=== PATIENT | female | born 1945 | race Caucasian/White ===

== ENCOUNTER → 2017-12-31 | Outpatient (CLI) | payer MEDICARE, BC ==
[~2017-12-31] MED LIST: ASPIRIN 32325 MG/TA1 PO; CHANTIX 1MG1 MG PO; DEXILANT60 MG PO; DULERA1 ARO IH; LEVOXYL0.125 MG PO; LIPITOR 40MG TA40 MG PO; MUCINEX 60600 MG/TA1 PO; MULTIPLE VITAMI1 CAP PO; MYSOLINE 5050 MG/TAB PO
== END ==
LOC: COL.RAD 08:09
DX: Z13.6 Encounter for screening for cardiovascular disorders (principal); I70.0 Atherosclerosis of aorta; E78.5 Hyperlipidemia, unspecified; I77.9 Disorder of arteries and arterioles, unspecified

== ENCOUNTER → 2018-01-04 | Outpatient (CLI) | payer MEDICARE, BC | LOC: COL.VAS 10:45 | DX: I08.0 Rheumatic disorders of both mitral and aortic valves (principal) ==

== ENCOUNTER → 2018-03-19 | Outpatient (CLI) | payer MEDICARE, BC ==
[2018-03-19 13:52] LABS: ALBUMIN 3.7 gm/dL (3.5-5.0); BILIRUBIN,TOTAL 0.5 mg/dL (0.0-1.0); CALCIUM 9.4 mg/dL (8.4-10.2); CREATININE, serum 0.55 mg/dL (0.52-1.25); POTASSIUM 4.6 mmol/L (3.4-5.0); TOTAL PROTEIN 6.9 gm/dL (6.4-8.2)
== END ==
LOC: COL.LAB 12:18
PROVIDERS: Internal Medicine Clinical Cardiac Electrophysiology
DX: I95.1 Orthostatic hypotension (principal); E78.2 Mixed hyperlipidemia

== ENCOUNTER → 2019-02-11 | Outpatient (CLI) | payer MEDICARE, BC | LOC: MC.RAD 11:45 | DX: Z12.31 Encounter for screening mammogram for malignant neoplasm of breast (principal) ==

== ENCOUNTER → 2019-10-01 | Outpatient (CLI) | payer MEDICARE, BC | LOC: COL.VAS 12:02 | DX: I65.22 Occlusion and stenosis of left carotid artery (principal); I95.1 Orthostatic hypotension; Z98.890 Other specified postprocedural states ==

== ENCOUNTER 2020-04-29 11:00 | Outpatient (RCR) | payer MEDICARE, BC | END 2020-07-07 | disposition home or self-care (01) | LOC: WSST | DX: R49.0 Dysphonia (principal); Z98.890 Other specified postprocedural states ==

== ENCOUNTER → 2020-06-14 | Outpatient (CLI) | payer MEDICARE, BC | LOC: ZCOL.LAB 15:52 | DX: Z20.828 Contact with and (suspected) exposure to other viral communicable diseases (principal) ==

== ENCOUNTER → 2021-06-06 | Outpatient (CLI) | payer MEDICARE, BC | LOC: MC.RAD 13:15 | DX: Z12.31 Encounter for screening mammogram for malignant neoplasm of breast (principal) ==

== ENCOUNTER 2021-12-13 11:07 | Outpatient (RCR) | payer MEDICARE, BC | END 2021-12-19 | disposition home or self-care (01) | LOC: WSST | DX: R49.0 Dysphonia (principal) ==

== ENCOUNTER 2022-01-17 13:45 | Outpatient (RCR) | payer MEDICARE, BC | END 2022-01-19 | disposition home or self-care (01) | LOC: WSST | DX: R49.0 Dysphonia (principal) ==

== ENCOUNTER → 2022-01-27 | Outpatient (CLI) | payer MEDICARE, BC | LOC: COL.RAD 13:14 | DX: Z12.2 Encounter for screening for malignant neoplasm of respiratory organs (principal); J43.9 Emphysema, unspecified; F17.211 Nicotine dependence, cigarettes, in remission ==

== ENCOUNTER 2022-02-01 12:45 | Outpatient (RCR) | payer MEDICARE, BC | END 2022-02-18 | disposition home or self-care (01) | LOC: WSST | DX: R49.0 Dysphonia (principal) ==

== ENCOUNTER 2022-05-10 12:45 | Outpatient (RCR) | payer MEDICARE, BC | END 2022-05-21 | disposition home or self-care (01) | LOC: WSST | DX: R49.0 Dysphonia (principal) ==

== ENCOUNTER → 2022-08-23 | Outpatient (CLI) | payer MEDICARE, BC | LOC: MC.RAD 13:54 | DX: Z12.31 Encounter for screening mammogram for malignant neoplasm of breast (principal) ==

== ENCOUNTER → 2023-03-23 | Outpatient (CLI) | payer MEDICARE, BC | LOC: COL.RAD 03-22 14:30 | DX: Z12.2 Encounter for screening for malignant neoplasm of respiratory organs (principal); J43.9 Emphysema, unspecified; Z87.891 Personal history of nicotine dependence ==